=== PATIENT | female | born 1950 | race Two or more races ===

== ENCOUNTER 2017-12-12 08:26 | Emergency (ER) | payer OTHER, MEDICAID ==
[2017-12-12 08:38] VITALS: TEMP 98.4
--- NOTE | 2017-12-12 08:50 | EDPHY ---
H & P Stated Complaint: cough, congested x 2 weeks Time Seen by Provider: 12/12/17 08:39 HPI/ROS: CHIEF COMPLAINT: Cough, cough related upper chest pain. Feeling dizzy HISTORY OF PRESENT ILLNESS: Is a 67-year-old female with a history of some underlying medical problems that remain confusing as we have no access to records. Specifically she is diabetic but has been noncompliant with home monitoring as she lost her monitor. Furthermore she describes be admitted to a local hospital, [facility], this past fall for right-sided numbness which was told to her to be a stroke. She also was told that she had a growth on her heart. She believes she was on blood thinners but for short period of time. Old records have been requested She is now living in up in this area as her sick the parents are here and she did take care of them. She notes over the last 2 weeks she has had a cough has been slightly progressive but not getting any better. She is getting no relief with the Robitussin DM. The cough is somewhat productive with yellow phlegm but no green discoloration. She notes that she is coughing so much that she is having some discomfort to the upper chest when she does cough. Furthermore, though she has been taking p.o. fluids well and has had no nausea vomiting diarrhea she does note that she feels dizzy and lightheaded. It does not seem to be correlated to postural changes. Though she is afebrile this morning, she feels she was probably febrile at home. At times she would feel particularly flushed and hot, thus she would go outside to cool off in the cool winter air. There has been no shaking chills or rigors. There has been no chest tightness. She is having no shortness of breath. She is trying to get [facility] to [facility] however they can see her for a month REVIEW OF SYSTEMS: Constitutional: See above. No shaking chills or rigors Eyes: No discharge ENT: No sore throat. Cardiovascular: She is having no chest tightness but there is a chest wall pain the upper chest Respiratory: See above Gastrointestinal: No nausea vomiting or diarrhea. No abdominal pain. Genitourinary: No hematuria or frequency. Musculoskeletal: No back pain. Skin: No rashes. Neurological: No headache. 10 point ROS otherwise negative Source: Patient Exam Limitations: No limitations - Personal History Current Tetanus/Diphtheria Vaccine: Yes - Medical/Surgical History Hx Asthma: No Hx Chronic Respiratory Disease: No Hx Diabetes: Yes Hx Cardiac Disease: No Hx Renal Disease: No Hx Cirrhosis: No Hx Alcoholism: No Hx HIV/AIDS: No Hx Splenectomy or Spleen Trauma: No Other PMH: MS. 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 diabetes - has not checked in 2 weeks, lost monitor. stroke. breast cancer. thyroid. GB. Appy - Social History Smoking Status: Current every day smoker - Physical Exam Exam: General Appearance: Alert, no distress. Afebrile, when checked by me was 37.0 , though she feels warm to the touch on the forehead. Normal phonation. No respiratory distress. Eyes: Pupils equal and round no pallor or injection. No icterus ENT, Mouth: Mucous membranes slightly dry Pharynx without erythema or exudate. TM Clear. Neck: No adenopathy. Supple. No JVD. Trachea in midline. Respiratory: There are no retractions, lungs show rales at the left base, no dullness Chest wall: Nontender to palpation. No crepitus. Cardiovascular: Regular rate and rhythm, without murmur. Abdomen: Soft and nontender, no masses, bowel sounds normal. Femoral pulses equal. Neurological: Ox3. No motor weakness. Sensation intact. Gait nl. Skin: Warm and dry, no rashes. Musculoskeletal: No joint swelling. Extremities: No edema. Homans sign negative. No cords. Psychiatric: Normal affect. Patient is oriented X 3. There is no agitation Constitutional: Initial Vital Signs Temperature (C) 36.9 C 12/12/17 08:33 Heart Rate 129 H 12/12/17 08:33 Respiratory Rate 20 12/12/17 08:33 Blood Pressure 136/77 H 12/12/17 08:33 O2 Sat (%) 96 12/12/17 08:33 O2 Delivery Mode Room Air Allergies/Adverse Reactions: ketorolac [From Toradol] Allergy (Verified 12/12/17 08:38) Dyspnea Penicillins Allergy (Verified 12/12/17 08:38) Dyspnea Home Medications: Medication Instructions Recorded Azithromycin [Zithromax] 250 mg PO DAILY #6 tab 12/12/17 Benzonatate 200 mg PO TID PRN #28 capsule 12/12/17 GABAPENTIN 12/12/17 Levothyroxine Sodium 12/12/17 Magnesium Chloride [Slow-Mag] 2 tab PO TID 7 Days #42 tablet.sa 12/12/17 Metformin HCl 12/12/17 Prazosin HCl 12/12/17 Sertraline HCl 12/12/17 Medical Decision Making - Diagnostics EKG Interpretation: EKG: Interpreted by me contemporaneously. Rhythm: Normal sinus rhythm. Heart rate 105 QTc 429 QRS: normal though there is a somewhat late transition in V4 of the R-wave, nonspecific STT segment: normal T Waves: Normal Q waves none Summary: Squaring of the P wave to suggest potential for atrial enlargement. However no ST TT segment changes. Questionable delaying the R-wave progression across the precordium verses lead placement Imaging Results: Imaging Impressions Chest X-Ray 12/12/17 08:51 Impression: Viral pneumonitis versus bronchitis with bibasilar atelectasis. ED Course/Re-evaluation: She was given IV fluids of normal saline for volume depletion. She was somewhat orthostatic with an increase in pulse when standing. Blood pressure dropped to 100 systolic. He has improved markedly with IV fluids. Cardiac rhythm showed a sinus rhythm tachycardic at 1:20 a.m. at times. EKG shows sinus tachycardia without ST changes Attempts were made to read old records from [facility] via [employer] however she was not in the system. Records request submitted, though never faxed to us. Chest x-ray showed mild bronchitis Laboratory evaluation include the following: Normal H&H Normal electrolytes Markedly low serum magnesium of 1.1 - thus given 2 g of Mag sulfate, IV. Preserved renal function She will need follow-up. I attempted to direct the woman back to her family physician chest of 1 month ago back in [facility]. This is only some [address]. However if she expressed worry concern at the [facility] there, and would like to follow up someone here. Thus I reviewed the case with Dr. Weathers, outpatient Medicine on-call and will see the patient in follow-up next week. Going for home management include: Benzonatate for the cough More fluids Zithromax P.O. magnesium supplementation Differential Diagnosis: Diagnostic considerations include, but are not limited to, the following: URI, sinusitis, pharyngitis, dehydration, pneumonia, allergy, influenza, strep throat, CHF, ACS, diabetes out of control. - Data Points Laboratory Results: Laboratory Results 12/12/17 09:16 12/12/17 09:16 12/12/17 12/12/17 12/12/17 11:06 09:16 09:16 WBC 12.01 10^3/uL H 10^3/uL (3.80-9.50) RBC 4.21 10^6/uL 10^6/uL (4.18-5.33) Hgb 13.2 g/dL g/dL (12.6-16.3) Hct 39.2 % % (38.0-47.0) MCV 93.1 fL fL (81.5-99.8) MCH 31.4 pg pg (27.9-34.1) MCHC 33.7 g/dL g/dL (32.4-36.7) RDW 15.7 % H % (11.5-15.2) Plt Count 247 10^3/uL 10^3/uL (150-400) MPV 9.8 fL fL (8.7-11.7) Neut % (Auto) 77.0 % H % (39.3-74.2) Lymph % (Auto) 15.5 % % (15.0-45.0) Dunn % (Auto) 5.7 % % (4.5-13.0) Eos % (Auto) 0.6 % % (0.6-7.6) Baso % (Auto) 0.4 % % (0.3-1.7) Nucleat RBC Rel Count 0.0 % % (0.0-0.2) Absolute Neuts (auto) 9.25 10^3/uL H 10^3/uL (1.70-6.50) Absolute Lymphs (auto) 1.86 10^3/uL 10^3/uL (1.00-3.00) Absolute Monos (auto) 0.68 10^3/uL 10^3/uL (0.30-0.80) Absolute Eos (auto) 0.07 10^3/uL 10^3/uL (0.03-0.40) Absolute Basos (auto) 0.05 10^3/uL 10^3/uL (0.02-0.10) Absolute Nucleated RBC 0.00 10^3/uL 10^3/uL (0-0.01) Immature Gran % 0.8 % % (0.0-1.1) Immature Gran # 0.10 10^3/uL 10^3/uL (0.00-0.10) VBG Lactic Acid 1.2 mmol/L mmol/L (0.7-2.1) Sodium Potassium Chloride Carbon Dioxide Anion Gap BUN Creatinine Estimated GFR Glucose Hemoglobin A1c Estim Average Glucose Calcium Magnesium Troponin I NT-Pro-B Natriuret Pep Urine Color YELLOW Urine Appearance CLEAR Urine pH 5.5 (5.0-7.5) Ur Specific Karval 1.025 (1.002-1.030) Urine Protein NEGATIVE (NEGATIVE) Urine Ketones NEGATIVE (NEGATIVE) Urine Blood NEGATIVE (NEGATIVE) Urine Nitrate NEGATIVE (NEGATIVE) Urine Bilirubin NEGATIVE (NEGATIVE) Urine Urobilinogen 0.2 EU EU (0.2-1.0) Ur Leukocyte Esterase NEGATIVE (NEGATIVE) Urine RBC 0-1 /hpf /hpf (0-3) Urine WBC 3-5 /hpf H /hpf (0-3) Ur Epithelial Cells 2+ /lpf H /lpf (NONE-1+) Urine Bacteria 2+ /hpf H /hpf (NONE SEEN) Urine Mucus 2+ /lpf H /lpf (NONE-1+) Urine Glucose TRACE H (NEGATIVE) 12/12/17 12/12/17 09:16 09:15 WBC RBC Hgb Hct MCV MCH MCHC RDW Plt Count MPV Neut % (Auto) Lymph % (Auto) Dunn % (Auto) Eos % (Auto) Baso % (Auto) Nucleat RBC Rel Count Absolute Neuts (auto) Absolute Lymphs (auto) Absolute Monos (auto) Absolute Eos (auto) Absolute Basos (auto) Absolute Nucleated RBC Immature Gran % Immature Gran # VBG Lactic Acid Sodium 144 mEq/L mEq/L (135-145) Potassium 4.7 mEq/L mEq/L (3.5-5.2) Chloride 105 mEq/L mEq/L (97-110) Carbon Dioxide 24 mEq/l mEq/l (22-31) Anion Gap 15 mEq/L mEq/L (8-16) BUN 25 mg/dL H mg/dL (7-23) Creatinine 0.7 mg/dL mg/dL (0.6-1.0) Estimated GFR > 60 Glucose 207 mg/dL H mg/dL (70-100) Hemoglobin A1c Cancelled Estim Average Glucose Cancelled Calcium 9.0 mg/dL mg/dL (8.5-10.4) Magnesium 1.1 mg/dL L mg/dL (1.6-2.3) Troponin I < 0.012 ng/mL ng/mL (0.000-0.034) NT-Pro-B Natriuret Pep 494 pg/mL H pg/mL (0-125) Urine Color Urine Appearance Urine pH Ur Specific Karval Urine Protein Urine Ketones Urine Blood Urine Nitrate Urine Bilirubin Urine Urobilinogen Ur Leukocyte Esterase Urine RBC Urine WBC Ur Epithelial Cells Urine Bacteria Urine Mucus Urine Glucose Medications Given: Discontinued Medications Acetaminophen (Tylenol) 650 mg PO EDNOW ONE Stop: 12/12/17 08:53 Last Admin: 12/12/17 09:30 Dose: 650 mg Sodium Chloride (Ns) 1,000 mls @ 0 mls/hr IV EDNOW ONE; Wide Open PRN Reason: Protocol Stop: 12/12/17 08:54 Last Admin: 12/12/17 09:16 Dose: 1,000 mls Magnesium Sulfate (Magnesium Sulf 2 Gm (Premix)) 50 mls @ 50 mls/hr IV EDNOW ONE Stop: 12/12/17 11:20 Last Admin: 12/12/17 10:30 Dose: 50 mls Sodium Chloride (Ns) 1,000 mls @ 0 mls/hr IV EDNOW ONE; Wide Open PRN Reason: Protocol Stop: 12/12/17 10:33 Last Admin: 12/12/17 10:51 Dose: 1,000 mls Departure - Departure Disposition: Home, Routine, Self-Care Clinical Impression: Bronchitis, Dehydration, moderate, Hypomagnesemia Acute bronchitis Qualifiers: Bronchitis organism: unspecified organism Qualified Code(s): J20.9 - Acute bronchitis, unspecified Condition: Good Instructions: Dehydration (ED), How to Check Your Blood Sugar (ED), Acute Bronchitis (ED) Additional Instructions: Do not take 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 You need to take extra fluids. Time to get another glucometer. You will need to take a source of magnesium as yours was low here in the ER. We recommend: Milk of magnesia 1 tsp 3 times daily for 5 days You will need the following prescriptions: Zithromax Benzonatate Referrals: NONE *PRIMARY CARE P,. [Primary Care Provider] - As per Instructions Aysha Weathers MD [Medical Doctor] - 2-3 days without fail Prescriptions: Azithromycin [Zithromax] 250 mg PO DAILY #6 tab Benzonatate 200 mg PO TID PRN #28 capsule PRN Reason: Cough, Moderate Magnesium Chloride [Slow-Mag] 2 tab PO TID 7 Days #42 tablet.sa
[2017-12-12] MEDS ORDERED: ACETAMINOPHEN 325 MG TAB PO ONE (08:52)
[2017-12-12] MEDS ORDERED: NS 1,000 ML IV ONE ×2 (08:53→10:32)
--- NOTE | 2017-12-12 08:59 | CPEKG ---
Heart Rate: 105 RR Interval: 571 P-R Interval: 152 QRSD Interval: 62 QT Interval: 324 QTC Interval: 429 P [place]: 55 QRS [place]: 40 T Wave [place]: 72 EKG Severity - BORDERLINE ECG - EKG Impression: SINUS TACHYCARDIA EKG Impression: PROBABLE LEFT ATRIAL ABNORMALITY EKG Impression: Late R-wave transition in V3 into V4 of lead placement Electronically Signed By: Naveen Rock 12-Dec-2017 09:02:28
[2017-12-12 09:23] LABS: PLATELET COUNT 247 10^3/uL (150-400)
[2017-12-12] MEDS ORDERED: MAGNESIUM SULF 2 GM/WATER 50 ML IV ONE (10:21)
[2017-12-12 11:43] VITALS: BP 112/80; PULSE 80; RESP 24; O2SAT 94
== END 2017-12-12 12:05 | disposition home or self-care (01) ==
LOC: CED 08:26
DX: J20.9 Acute bronchitis, unspecified (principal); E86.0 Dehydration; E83.42 Hypomagnesemia; E86.9 Volume depletion, unspecified; E11.9 Type 2 diabetes mellitus without complications; F17.200 Nicotine dependence, unspecified, uncomplicated; Z85.3 Personal history of malignant neoplasm of breast; Z79.84 Long term (current) use of oral hypoglycemic drugs
CPT/HCPCS: 71046-PO; 80048-PO; 81003-PO; 81015-PO; 83605-PO; 83735-PO; 83880-PO; 84484-PO; 85025-PO; 96365

== ENCOUNTER 2018-03-09 15:28 | Emergency (ER) | payer OTHER, MEDICAID ==
[2018-03-09] MEDS ORDERED: CYCLOBENZAPRINE 10 MG TAB PO ONE (16:19)
[2018-03-09] MEDS ORDERED: HYDROCODONE/APAP 5/325 TAB PO ONE (16:20)
--- NOTE | 2018-03-09 16:24 | EDPHY ---
H & P Time Seen by Provider: 03/09/18 16:12 HPI/ROS: HPI Back injury. 68-year-old female by private vehicle with her neighbors who are driving. She reports that she tripped and fell in her yd 1 and half days ago. Since this time she is described worsening lower back pain with associated lower back muscle spasms. She reports the pain radiates into her buttocks and the upper part of her posterior thighs. She describes the pain as involving mostly the bilateral sacroiliac areas. She has not had any bowel or bladder incontinence. No loss of sensation or weakness in her lower extremities. No fever. She reports that laying flat on her lower back helps to alleviate the pain and spasming. ROS: Constitutional: No fever, no chills. No weakness. Respiratory: No cough. No shortness of breath. Cardiac: No chest pain, no palpitations. Gastrointestinal: No abdominal pain, no vomiting, no diarrhea. Genitourinary: No hematuria. No dysuria or increased frequency with urination. Musculoskeletal: As above. No neck pain. Denies extremity pain. Skin: No rashes. No lacerations or abrasions. Neurological: No focal weakness or altered sensation. Past medical history: Diabetes type 2 takes metformin, MS, breast cancer, hypothyroid, cholecystectomy, appendectomy, CVA. Social history: Smoker, lives by herself. No alcohol. Was brought here by her neighbors. Physical Exam: General Appearance: Alert, not in distress but appears uncomfortable. This patient is responding to questions appropriately and in full sentences. This patient appears well-hydrated and well-nourished. Head: Normocephalic atraumatic. Eyes: Pupils equal and round no pallor or injection. No lid edema, erythema or injection. Back exam: She has tenderness on palpation of the bilateral sacroiliac joint areas. No soft tissue swelling, erythema or warmth associated. She does not have significant midline cervical, thoracic, lumbar, sacral tenderness on palpation. She has a negative same side and cross side straight leg raise test. She is neurologically intact in all myotomes in dermatomes of the bilateral lower extremities. Gastrointestinal: Abdomen is soft and nontender, no masses, bowel sounds normal. No focal tenderness at McBurney's point. No Bateman sign. Neurological: Motor sensory function is grossly intact. Cranial nerves are normal. Skin: Warm and dry, no rashes. Musculoskeletal: Neck is supple and nontender. Extremities are symmetrical. All joints range without pain or impingement. Psychiatric: No agitation. No depression. Database: EKG: Imaging: LS spine x-ray series: Mild compression deformity involving the L4 vertebral body both superior and inferior endplates. Age indeterminate. Otherwise age- related changes. Interpreted by staff radiologist and reviewed by myself. Clinically the patient does not have significant midline lumbar sacral tenderness on palpation. Procedures: Emergency department course: Vital signs reviewed. She is tachycardic. This is likely secondary to pain. I reviewed her medication allergies. She states that she is allergic to Toradol and other NSAIDs secondary to stomach problems. She will be given Flexeril 10 mg and 2 Turon tablets. Secondary to her history of breast cancer we will obtain a LS spine x-ray series. 5:15 p.m., patient re-evaluated. Borderline tachycardia. Resting comfortably at this time. She reports her pain is much better after above medications. Repeat neurologic assessment is nonfocal. I discussed the results of her x- rays and her diagnosis of possible lumbar sacral strain versus acute L4 compression fracture as noted above. She feels comfortable going home at this time. I will prescribe her Turon as well as Flexeril for pain medication and muscle spasming. I will refer her initially to [facility] for further management. She is in agreement with this plan and she feels comfortable going home. Return to emergency department precautions have been discussed with her in detail. All of her questions were answered. She was discharged in good condition. Differential Diagnosis: The differential diagnosis on this patient includes but is not limited to lumbar sacral strain. Spinal cord compression syndrome/myelopathy/acute radiculopathy, fracture/subluxation/dislocation, abdominal aortic aneurysm, pathologic fracture, cauda equina syndrome unlikely. This represents a partial list of diagnoses considered. These considerations are based on history, physical exam, past history, reassessment and diagnostic testing. Smoking Status: Current every day smoker Constitutional: Initial Vital Signs Temperature (C) 37.1 C 03/09/18 15:58 Heart Rate 120 H 03/09/18 15:58 Respiratory Rate 18 03/09/18 15:58 Blood Pressure 114/96 H 03/09/18 15:58 O2 Sat (%) 96 03/09/18 15:58 O2 Delivery Mode Room Air Allergies/Adverse Reactions: diphenhydramine [From Benadryl] Allergy (Verified 03/09/18 15:56) ketorolac [From Toradol] Allergy (Verified 03/09/18 15:56) Dyspnea Penicillins Allergy (Verified 03/09/18 15:56) Dyspnea Home Medications: Medication Instructions Recorded Levothyroxine Sodium 12/12/17 Metformin HCl 12/12/17 Cyclobenzaprine [Flexeril 10 MG 10 mg PO TID #9 tab 03/09/18 (*)] Hydrocodone/APAP 5/325 [Turon 1 - 2 tab PO Q4-6PRN PRN #10 tab 03/09/18 5/325 (*)] Medical Decision Making - Diagnostics Imaging Results: Imaging Impressions Lumbar Spine X-Ray 03/09/18 16:20 Impression: Mild compression deformity of the L4 vertebral body, age indeterminate. Features of degenerative disk disease at L2-L3 and L3-L4. - Data Points Medications Given: Discontinued Medications Hydrocodone Bitart/Acetaminophen (Turon 5/325) 2 tab PO EDNOW ONE Stop: 03/09/18 16:21 Last Admin: 03/09/18 16:43 Dose: 2 tab Cyclobenzaprine HCl (Flexeril) 10 mg PO EDNOW ONE Stop: 03/09/18 16:20 Last Admin: 03/09/18 16:44 Dose: 10 mg Departure - Departure Disposition: Home, Routine, Self-Care Clinical Impression: Lower back injury, Lumbar sacral strain Condition: Good Instructions: Hydrocodone/Acetaminophen (By mouth), Cyclobenzaprine (By mouth) , Vertebral Compression Fracture (ED), Low Back Strain (ED) Additional Instructions: Read and follow provided instructions. Follow-up with your primary care physician in 1-2 days for re-evaluation. Your primary care physician can refer you to an orthopedist for further management. I have also provided you with a referral to [facility]. They specialize in non operative treatment for back pain and I think would be appropriate for initial follow-up for your injury. You can call their office tomorrow morning to arrange for a follow-up appointment. It is unclear whether the mild compression fracture of your L4 vertebra is old are new. These injuries are primarily managed conservatively with limited activity and pain control. It is important though that you are up an active. Just avoid activity which causes significant pain. Strict bedrest is not recommended. Take medication as prescribed. Turon/Percocet dosin-2 every 4-6 hours for [address] Do not drive on this medication. Return to the emergency department for worsening symptoms, worsening pain, bowel or bladder incontinence, loss of sensation or weakness in your extremities or other serious concerns. [facility]errals: [facility]] - As per Instructions [facility] [Outside] - As per Instructions Prescriptions: Cyclobenzaprine [Flexeril 10 MG (*)] 10 mg PO TID #9 tab Hydrocodone/APAP 5/325 [Turon 5/325 (*)] 1 - 2 tab PO Q4-6PRN PRN #10 tab PRN Reason: Pain, Moderate
[2018-03-09 17:30] VITALS: BP 108/63
== END 2018-03-09 17:55 | disposition home or self-care (01) ==
LOC: CED 15:28
DX: S39.012A Strain of muscle, fascia and tendon of lower back, initial encounter (principal); E11.9 Type 2 diabetes mellitus without complications; F17.200 Nicotine dependence, unspecified, uncomplicated; Z79.84 Long term (current) use of oral hypoglycemic drugs; Z85.3 Personal history of malignant neoplasm of breast; Z86.73 Personal history of transient ischemic attack (TIA), and cerebral infarction without residual deficits; W01.0XXA Fall on same level from slipping, tripping and stumbling without subsequent striking against object, initial encounter; Y92.007 Garden or yard of unspecified non-institutional (private) residence as the place of occurrence of the external cause
CPT/HCPCS: 72100-PO